=== PATIENT | male | born 1960 | race Caucasian/White ===

== ENCOUNTER → 2017-12-18 11:47 | Outpatient (CLI) | payer BC, SELFPAY ==
--- NOTE | 2017-12-18 11:49 | EKG12_ITS ---
Test Reason : PROLONGED QT INTERVA Blood Pressure : / mmHG Vent. Rate : 063 BPM Atrial Rate : 063 BPM P-R Int : 152 ms QRS Dur : 088 ms QT Int : 396 ms P-R-T Axes : 027 005 065 degrees QTc Int : 405 ms Normal sinus rhythm Low voltage QRS Abnormal ECG Confirmed by ESTEFANI DE LA ROSA, TAY ([id number]), editor managing director JERRI PEREZ ([id number] on 12/19/2017 10:51:11 AM Referred By: ROOSEVELT Confirmed By:TAY JARA MD
== END ==
PROVIDERS: Family Provider Student in an Organized Health Care Education/Training Program; PCP Student in an Organized Health Care Education/Training Program; Visit Provider Internal Medicine Hematology & Oncology
DX: C92.10 Chronic myeloid leukemia, BCR/ABL-positive, not having achieved remission (principal); R94.31 Abnormal electrocardiogram [ECG] [EKG]
CPT/HCPCS: 93005

== ENCOUNTER → 2018-04-25 17:10 | Outpatient (CLI) | payer BC, SELFPAY ==
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
--- NOTE | 2018-04-25 17:10 | DT_ITS ---
This patient was seen during an EMR downtime April 23, 2018 - April 30, 2018. This patient may have a combination of paper and electronic documentation or all paper documentation. All documentation is viewable within the e-chart portion of [employer] for each patient visit.
== END ==
PROVIDERS: Family Provider Student in an Organized Health Care Education/Training Program; PCP Student in an Organized Health Care Education/Training Program; Visit Provider Anesthesiology Pain Medicine
DX: M54.5 Low back pain (principal); M79.605 Pain in left leg; R29.898 Other symptoms and signs involving the musculoskeletal system
CPT/HCPCS: 72148

== ENCOUNTER 2018-07-04 09:57 | Emergency (ER) | payer BC, SELFPAY ==
[2018-07-04 09:59] VITALS: BP 132/84; PULSE 84; RESP 17; TEMP 37.3; O2SAT 94; BMI 28.0
[2018-07-04 10:49] LABS: Erythrocyte Sedimentation Rate 56 mm/hr (0-20)
[2018-07-04 10:50] LABS: Bacteria 0 SEEN /hpf (None Seen); Mucous, Urine 0 SEEN /hpf (<or=2+); Squamous Epithelial Cells - UA 0 SEEN /hpf (0-5)
[2018-07-04 10:52] LABS: Color, Urine Yellow (Yellow); Glucose, Dipstick Normal (Normal); Ketone-Dipstick Negative (Negative); Leukocyte Esterase-Dipstick 25 /ul (Negative); Nitrite-Dipstick Negative (Negative); Occult Blood-Urine 25 /ul (Negative); Protein-Dipstick 15 mg/dl (Negative); Urine Bilirubin Dipstick Negative (Negative); Urine Clarity Sl. Cloudy (Clear); Urine Urobilinogen 1 mg/dl (Normal)
[2018-07-04 10:53] LABS: Absolute Lymphocyte Count 1.47 X10^3/ul (0.83-4.51); Absolute Neutrophil Count 7.8 X10^3/uL (2.0-7.7); Basophil# 0.05 X10^3/uL; Basophil% 0.4 % (0-1); Differential Indicated SCAN CRITERIA MET; Eosinophil# 0.48 X10^3/uL; Hematocrit 40.2 % (40-54); Hemoglobin 13.9 g/dl (13.0-16.5); Lymphocyte # 1.47 X10^3/ul (4.0); Lymphocyte % 12.1 % (19-41); Mean Corp Hgb Conc 34.6 g/gl (32-36); Mean Corpuscular Hgb 31.1 pg (27.0-32.0); Mean Corpuscular Volume 89.9 fL (80-94); Monocyte% 18.9 % (0-10); Neutrophil # 7.78 X10^3/uL (2.7-7.7); POSITIVE COUNT NO; POSITIVE DIFFERENTIAL YES; POSITIVE MORPHOLOGY NO; Platelet Count 265 K/mm3 (150-450); RBC Distribution Width CV 12.8 % (11.6-14.6); RBC Distribution Width SD 41.9 fl (35.1-43.9); Red Blood Count 4.47 M/mm3 (4.6-6.2); White Blood Count 12.2 K/mm3 (4.4-11.0)
[2018-07-04 10:57] LABS: Red Blood Cells-Urine 0-5 SEEN /hpf (0-5); White Blood Cells 0-5 SEEN /hpf (0-5)
[2018-07-04 11:04] LABS: ALB/GLOB Ratio 0.6 RATIO (0.9-2.4); AST(SGOT) 14 U/L (15-37); Alanine Aminotransfer ALT/SGPT 20 U/L (16-61); Alkaline Phosphatase 67 U/L (45-117); Anion Gap 6 (5-15); BUN 14 mg/dL (7-18); BUN/Creat Ratio 14.2 RATIO (10-20); Calcium,Total 8.9 mg/dL (8.5-10.1); Chloride 101 mmol/L (98-107); Creatinine, Serum 0.99 mg/dL (0.70-1.30); EST Glomerular Filtration Rate 82 mL/min (>60); Est Glom Filt Rate - Afr Amer 100 mL/min (>60); Estimated Creatinine Clearance 80.34 ml/min; Globulin 4.9 g/dL (2.2-4.2); Glucose 105 mg/dL (74-106); Potassium 3.9 mmol/L (3.5-5.1); Protein, Total 7.9 g/dL (6.4-8.2); Sodium Level 137 mmol/L (136-145)
[2018-07-04] MEDS: 0.9% Normal Saline 1,000 ML 150 ML IV (11:31)
--- NOTE | 2018-07-04 11:45 | NURSING ---
PAGING DR ROSALES PEREZ, [place] [phone]
[2018-07-04] MEDS: HYDROcodone Bitartrate/Apap 5/325 Tablet PO (12:05)
[2018-07-04 12:06] VITALS: BP 136/78; PULSE 82; RESP 16; O2SAT 98
--- NOTE | 2018-07-04 12:10 | ED.VISSUMM ---
- ER Visit Summary Date of Service: 07/04/18 Chief Complaint: [Right-sided chest pain] History of Present Illness: The patient is a 57 M [presents to the emergency department complaint of right-sided chest discomfort that started last evening. Patient combines of pain with deep breath and certain movement. Patient states that hurts the lay flat. Patient denies any cough or fever other than low-grade temp at home to 99. Patient states that he had a discectomy [address] Uzair Marks at the [facility]. Patient has history of prior DVT and has a Fam filter. Patient not currently anticoagulated. Patient does have a history of CML as well. Patient has had prior splenectomy.] Physical Examination: [HEENT-PERRLA, EOMI. Cranial nerves II through XII grossly intact. TMs clear. Mucous membranes moist. No adenopathy. Cardiovascular-regular rate and rhythm without murmur or ectopy Lungs-clear to auscultation, chest wall stable without crepitus or subcu emphysema Abdomen-normoactive bowel sounds, soft, nontender, no rebound or rigidity, no peritoneal signs. Extremities-intact ?4, normal range of motion, normal pulses, atraumatic] Test Results: [EKG obtained on arrival showed a sinus rhythm with a ventricular rate of 74 bpm with no acute ST segment changes. CBC with differential showed a white count of 12.2, heme globin 13.9, hematocrit 40, platelets 265. Sed rate was elevated at 56. Chemistries unremarkable. Urinalysis was normal. Troponin was less than 0.015. CTA of the chest obtained showed multiple bilateral pulmonary emboli in the peripheral branches.] Emergency Department Course and Treatment: I discussed case with patient and his . I also spoke with the nurse practitioner covering for Dr. Uzair Marks and they are comfortable with anticoagulating the patient. I discussed case with Dr. Bianchi who was covering for Dr. Somers who agrees with treatment with Eliquis.] Treatment Plan: [Patient will be started on Eliquis] Disposition: [Discharged to home in stable condition] Impression: [Bilateral pulmonary emboli] This note was generated with Aipai dictation software. It may contain incorrect words, spelling, and punctuation that were not noted in review of the chart prior to signing ED Disposition - Plan for ED Patient: Chief Complaint: Chest Other Referrals: Yeison Somers, [Primary Care Provider] -
--- NOTE | 2018-07-04 12:13 | ED.DEP ---
ED Disposition - Plan for ED Patient: Chief Complaint: Chest Other Instructions: Pulmonary Embolism Prescriptions: Apixaban [Eliquis] 5 mg PO BID #70 tab Referrals: Yeison Somers DO [Primary Care Provider] - 3-5 Days
[2018-07-04] MEDS: APIXABAN 5 MG TABLET 10 MG PO (12:28)
[2018-07-04 12:30] VITALS: BP 133/74; PULSE 80; RESP 16; O2SAT 97
== END 2018-07-04 12:44 | disposition home or self-care (01) ==
LOC: ED 10:36
PROVIDERS: Emergency Provider Emergency Medicine; Family Provider Student in an Organized Health Care Education/Training Program; PCP Student in an Organized Health Care Education/Training Program
DX: I26.99 Other pulmonary embolism without acute cor pulmonale (principal); R50.9 Fever, unspecified; Z86.718 Personal history of other venous thrombosis and embolism; C92.10 Chronic myeloid leukemia, BCR/ABL-positive, not having achieved remission; Z95.828 Presence of other vascular implants and grafts; Z90.81 Acquired absence of spleen; Z79.82 Long term (current) use of aspirin; Z79.899 Other long term (current) drug therapy
CPT/HCPCS: 71275; 80053; 81001; 84484; 85025; 85652; 93005; 96360; 99285; Q9967

== ENCOUNTER 2018-08-30 17:30 | Outpatient (RCR) | payer BC, SELFPAY ==
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
== END 2018-08-30 19:00 | disposition home or self-care (01) ==
LOC: PT 17:30
PROVIDERS: Family Provider Student in an Organized Health Care Education/Training Program; PCP Student in an Organized Health Care Education/Training Program; Visit Provider Nurse Practitioner Acute Care
DX: M48.00 Spinal stenosis, site unspecified (principal)
CPT/HCPCS: 97110; 97162

== ENCOUNTER 2020-01-17 20:30 | Emergency (ER) | payer BC, SELFPAY ==
[2020-01-17 20:31] VITALS: BP 159/90; PULSE 77; RESP 15; TEMP 36.5; O2SAT 95; BMI 29.4
--- NOTE | 2020-01-17 20:52 | US_ITS ---
STUDY: VENOUS DOPPLER ULTRASOUND - RIGHT LOWER EXTREMITY REASON FOR EXAM: Male, 59 years old. RIGHT CALF PAIN 3 DAYS TECHNIQUE: Ultrasound evaluation of the deep vein system to include mahan-scale imaging and compression was performed. Mahan-scale imaging and Doppler sonographic evaluation, including duplex spectral analysis and qualitative color flow sonography, was performed. COMPARISON: None. FINDINGS: Common Femoral Vein: Normal compression, spontaneity and augmentation. Normal color Doppler. Deep Femoral Vein: Normal compression. Femoral Proximal: Normal compression. Femoral Middle: Normal compression, spontaneity and augmentation. Normal color Doppler. Femoral Distal: Normal compression. Popliteal Vein: Normal compression, spontaneity and augmentation. Normal color Doppler. Posterior Tibial Vein: Normal compression. Peroneal Vein: Normal compression. Within the popliteal fossa there is a 2.8 x 0.8 x 1.6 cm well-circumscribed anechoic focus. US/Venous Duplex Imag/Limited/Uni IMPRESSION: No demonstrated deep vein thrombosis. 2.8 x 0.8 x 1.6 cm popliteal cyst. Electronically Signed: Ghislaine Amin MD at 22:44 EST Tel , Service support ,
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
== END 2020-01-17 23:03 | disposition home or self-care (01) ==
LOC: ED 20:51
PROVIDERS: Emergency Provider Emergency Medicine; PCP Student in an Organized Health Care Education/Training Program
DX: M71.21 Synovial cyst of popliteal space [Baker], right knee (principal); Z86.718 Personal history of other venous thrombosis and embolism; Z86.711 Personal history of pulmonary embolism; Z79.01 Long term (current) use of anticoagulants
CPT/HCPCS: 93971; 99282

== ENCOUNTER 2021-02-02 14:18 | Outpatient (RCR) | payer OTHER, SELFPAY ==
[2021-02-02] MEDS: COVID-19 VACC, MRNA(PFIZER)/PF 30 MCG/0.3 ML SYRINGE IM (11:16)
[2021-02-23] MEDS: COVID-19 VACC, MRNA(PFIZER)/PF 30 MCG/0.3 ML SYRINGE IM (11:15)
== END 2021-04-27 23:59 ==
LOC: IMMUN 14:18
PROVIDERS: PCP Student in an Organized Health Care Education/Training Program; Visit Provider Family Medicine
DX: Z23 Encounter for immunization (principal)
CPT/HCPCS: 0001A; 0002A; 91300

== ENCOUNTER 2021-07-29 09:59 | Emergency (ER) | payer OTHER, SELFPAY ==
[2021-07-29 10:00] VITALS: BP 161/85; PULSE 64; RESP 18; TEMP 36.6; O2SAT 98; BMI 28.8
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
[2021-07-29 10:55] LABS: Absolute Lymphocyte Count 2.12 X10^3/uL (0.83-4.51); Absolute Neutrophil Count 4.1 X10^3/uL (2.0-7.7); Basophil% 1.3 % (0-1); Eosinophil# 0.28 X10^3/uL; Eosinophils% 3.6 % (0-5); Hematocrit 47.5 % (40-54); Hemoglobin 15.9 g/dL (13.0-16.5); Lymphocyte # 2.12 X10^3/ul (0.83-4.51); Lymphocyte % 27.2 % (19-41); Mean Corp Hgb Conc 33.5 g/dL (32-36); Mean Corpuscular Hgb 29.8 pg (27.0-32.0); Mean Platelet Vol. 10.6 fl (6.2-12.0); Monocyte# 1.12 X10^3/uL; Monocyte% 14.4 % (0-10); NRBC Flagged by Analyzer 0 % (0-5); Neutrophil # 4.14 X10^3/uL (2.7-7.7); Neutrophil % 53.2 % (47-70); Platelet Count 285 K/mm3 (150-450); RBC Distribution Width CV 13.9 % (11.6-14.6); RBC Distribution Width SD 44.7 fl (35.1-43.9); Red Blood Count 5.34 M/mm3 (4.6-6.2); White Blood Count 7.8 K/mm3 (4.4-11.0)
[2021-07-29 11:05] LABS: Erythrocyte Sedimentation Rate 25 mm/hr (0-20)
[2021-07-29 11:25] LABS: Anion Gap 6 (5-15); BUN 16 mg/dL (7-18); BUN/Creat Ratio 16.2 RATIO (10-20); CRP < 2.90 mg/L (0.0-3.0); Calcium,Total 9.3 mg/dL (8.5-10.1); Chloride 107 mmol/L (98-107); Creatinine, Serum 0.99 mg/dL (0.70-1.30); EST Glomerular Filtration Rate 81 mL/min (>60); Est Glom Filt Rate - Afr Amer 98 mL/min (>60); Estimated Creatinine Clearance 73.89 ml/min; Glucose 94 mg/dL (74-106); Potassium 4.2 mmol/L (3.5-5.1); Sodium Level 138 mmol/L (136-145)
--- NOTE | 2021-07-29 12:04 | CT_ITS ---
STUDY: CTA OF THE BRAIN REASON FOR EXAM: Male, 61 years old. Aneurysm RADIATION DOSAGE (If Supplied By Facility): CTDIvol = ( 28.04 ) mGy, DLP = ( 1250.06 ) mGycm TECHNIQUE: CT angiography was performed with a multi-detector CT scanner. Data acquisition was obtained from the skull base through the vertex following intravenous administration of IV 100mL [id number]-[id number]. MIP images were reconstructed from the axial data set. Post-processing of the angiographic images was performed, with multiplanar reformation and 3D reconstruction. Individualized dose optimization techniques were used for this CT. COMPARISON: None. FINDINGS: Normal bilateral petrous carotid arteries. There is calcified plaque formation of the right cavernous carotid artery, without a cross-sectional luminal stenosis. There is calcified plaque formation of the left cavernous carotid artery, without a cross-sectional luminal stenosis. Normal right A1 segments of the anterior cerebral artery. Normal left A1 segments of the anterior cerebral artery. Normal intact anterior communicating artery (ACOM). Normal bilateral A2 segments of the anterior cerebral arteries. Normal right M1 and M2 segments of the middle cerebral arteries, with a normal M1 bifurcation. Normal left M1 and M2 segments of the middle cerebral arteries, with a normal M1 bifurcation. Normal right posterior communicating artery (PCOM). Normal left posterior communicating artery (PCOM). Normal bilateral vertebral arteries. Normal basilar artery with a normal basilar bifurcation. The visualized bilateral superior cerebellar (SCA) arteries are normal. Normal bilateral P1, P2 and visualized P3 segments of the posterior cerebral arteries. There is no demonstrated aneurysm of the [place]. There is evidence of a cavum septum pellucidum. CT/CTA Head W/WO Contrast IMPRESSION: Normal [place] of [place] without a demonstrated aneurysm or hemodynamically significant stenosis. Electronically Signed: Steven Griffiths MD at 12:38 EDT , Service support ,
== END 2021-07-29 15:45 | disposition home or self-care (01) ==
PROVIDERS: Emergency Provider Emergency Medicine; PCP Student in an Organized Health Care Education/Training Program
DX: H49.01 Third [oculomotor] nerve palsy, right eye (principal); Z85.6 Personal history of leukemia; Z79.82 Long term (current) use of aspirin
CPT/HCPCS: 70496; 80048; 85025; 85652; 86140; 99283; Q9967; A4216

== ENCOUNTER → 2022-12-06 | Outpatient (CLI) | payer BC, SELFPAY ==
--- NOTE | 2022-12-06 15:26 | RAD_ITS ---
INDICATION: BACK PAIN EXAMINATION/TECHNIQUE: X-RAY - XR Spine Lumbar Min 4 Views COMPARISON: None. FINDINGS: VERTEBRAE: Preserved vertebral body height. No fracture. No spondylolisthesis. Preservation of the normal lumbar lordosis. No significant facet arthropathy. DISCS: There is narrowing of the L5-S1 disc space and mild multilevel endplate spurring INCLUDED ABDOMEN: Included bowel gas pattern is non-obstructive. IVC filter noted Postsurgical changes status post fusion of the sacroiliac joints. RAD/L/S Spine Min 4 Views IMPRESSION: Mild spondylosis. No acute fracture or other significant bony pathology. Electronically Signed: Lance Marley MD at 17:37 EST ,
--- NOTE | 2022-12-06 15:34 | RAD_ITS ---
STUDY: X-RAY - PELVIS AND RIGHT HIP REASON FOR EXAM: Male, 62 years old. Right hip pain. TECHNIQUE: 3 views of the pelvis and hip. COMPARISON: 08/10/2017 radiographs. FINDINGS: No acute fracture or aggressive osseous lesions. Extensive chronic posttraumatic and postsurgical changes again demonstrated, with fixation screws traversing both sacroiliac joints, a plate and screw fixating the upper aspect of the pubic symphysis, and 2 plates and screws fixating the right acetabulum. The hardware is intact. Adjacent healed fractures again demonstrated. Heterotopic ossifications adjacent to the right hip again demonstrated. Mild left and moderate right hip joint osteoarthritis similar to previous. Soft tissues unremarkable. RAD/HIP, UNI W/ Pelvis 2-3 Views IMPRESSION: No acute finding or significant change. Moderate right and mild left hip osteoarthritis. Extensive chronic posttraumatic and postsurgical changes. Electronically Signed: Baldemar Pang MD at 23:19 EST Reading Location ID and State: [facility] / [place] Tel , Service support ,
== END | disposition home or self-care (01) ==
LOC: RAD 15:25
PROVIDERS: PCP Student in an Organized Health Care Education/Training Program; Referring Provider Anesthesiology Pain Medicine; Visit Provider Anesthesiology Pain Medicine
DX: M47.816 Spondylosis without myelopathy or radiculopathy, lumbar region (principal); M51.37 Other intervertebral disc degeneration, lumbosacral region; M16.11 Unilateral primary osteoarthritis, right hip
CPT/HCPCS: 72110; 73502

== ENCOUNTER 2024-01-08 13:21 | Emergency (ER) | payer OTHER, BC, SELFPAY ==
[2024-01-08 13:22] VITALS: BP 127/90; PULSE 68; RESP 18; TEMP 36.9; O2SAT 96; BMI 29.1
--- NOTE | 2024-01-08 13:35 | ED.RN ---
[facility] NOTIFIED OF PATIENT NEEDING DRUG TESTING
--- NOTE | 2024-01-08 13:57 | CT_ITS ---
STUDY: CT BRAIN WITHOUT CONTRAST REASON FOR EXAM: Male, 63 years old. Head trauma on Brilinta RADIATION DOSAGE (If Supplied By Facility): CTDIvol = ( 47.06 ) mGy, DLP = ( 907.97 ) mGycm TECHNIQUE: Transaxial CT imaging of the brain was performed without administration of intravenous contrast material. Individualized dose optimization techniques were used for this CT. COMPARISON: Comparison is made with prior study dated March 26, 2017. FINDINGS: Small scalp hematoma overlying the right parietal bone. Normal calvarium. There is mild cerebral atrophy with widening of the extra-axial spaces and ventricular dilatation. Normal white matter tracts of the cerebral hemispheres. Normal basal ganglia and thalami. Normal brainstem. Normal cerebellum. There is a cavum septum pellucidum. There is no intracranial hemorrhage. There are no findings of an acute ischemic infarction. Normal visualized paranasal sinuses. CT/Brain/Head without Contrast IMPRESSION: Chronic involutional changes of the brain. Small scalp hematoma overlying the right frontal bone. Electronically Signed: Steven Griffiths MD at 14:41 EST ,
--- NOTE | 2024-01-08 13:59 | EDS_ITS ---
HPI History of Present Illness Chief Complaint: Laceration Detail of Chief Complaint: Blunt head trauma with laceration vertex scalp Informant: patient Onset/Context/Timing Onset: Hours Mechanism/Context: Blunt Injury Location of pain/injuries: - (Scalp) Quality of Pain: - (None) Location: Vertex scalp Current Severity: Gone Maximum Severity: Mild Worsened by: Nothing Relieved by: Not applicable Associated Symptoms Associated Symptoms: Negative for Parasthesias, Weakness, Loss of function, Inability to ambulate, Loss of consciousness or Amnesia Length of loss of consciousness: None Narrative Narrative: Patient is a 63-year-old male who presents from work after blunt head trauma. Patient hit his head on metal. He reports no loss of conscious. He states he was not dazed. He denies nausea or vomiting. He denies visual disturbance. Initial speech or swallowing. He denies paresthesia, anesthesia motors. Denies neck pain. Patient is on Brilinta. States he does not bleed easily. He is also on aspirin. Tetanus Immunization: 5-10 years Prior similar symptoms: No Recent Illness/Hospitalization: No PFSH PFS Medical History Ambrose's palsy Cervical vertebral fracture Fracture, hip H/O: CML (chronic myeloid leukemia) Pelvis fracture Ribs, multiple fractures Home Medications Proventil Hfa 2 puff inhalation 4X/DAY PRN PRN Shortness Of Breath 06/23/14 [History Last Taken 03/25/17] aspirin 81 mg chewable tablet 81 mg PO DAILY@0800 06/23/14 [History Last Taken 03/25/17] multivitamin with folic acid 400 mcg tablet (Thera) 1 tab PO DAILY 06/23/14 [History Last Taken 03/25/17] tamsulosin 0.4 mg capsule 0.4 mg PO DAILY 06/23/14 [History Last Taken 03/25/17] nilotinib 150 mg capsule (Tasigna) 300 mg PO BID 03/26/17 [History Last Taken 03/26/17] azelastine 0.05 % eye drops 1 drp DAILY PRN Allergies 08/18/17 [History Last Taken Unknown] cromolyn 4 % eye drops 1 drp BID 08/18/17 [History Last Taken Unknown] montelukast 10 mg tablet 10 mg PO DAILY 08/18/17 [History Last Taken Unknown] cetirizine 5 mg tablet 5 mg PO DAILY 07/29/21 [History Last Taken Unknown] fluticasone 100 mcg-salmeterol 50 mcg/dose blistr powdr for inhalation (Advair Diskus) 1 inh inhalation BID 07/29/21 [History Last Taken Unknown] Allergy/AdvReac Type Severity Reaction Status Date / Time oxycodone HCl [From Percocet] AdvReac HALLUCINATI Verified 01/08/24 13:22 ONS Surgical History H/O splenectomy Social History (Updated 01/08/24 @ 14:[address] Kee Junior MD) Smoking Status: Never smoker substance use type: does not use ROS ROS ED Eyes Eyes: Denies blurry vision or change in vision ENT ENT ED: Reports other Details: Denies epistaxis or dental trauma. ; Denies ear pain or rhinorrhea Cardiovascular Cardiovascular: Reports chest pain Respiratory/Chest Respiratory/Chest: Reports dyspnea Gastrointestinal Gastrointestinal: Reports nausea and vomiting Integumentary Reports other Details: Scalp laceration, flap-like Neurologic Neurologic: Denies headache(s), paresthesias or weakness Hematologic/Lymphatic Hematologic/Lymphatic: Reports easy bleeding and easy bruising EXAM Physical Exam Const Vital Signs: 01/08/24 13:22 Temperature 98.5 F Temperature Source Temporal Pulse Rate 68 Respiratory Rate 18 Blood Pressure 127/90 H Blood Pressure Mean 102 Pulse Ox 96 Oxygen Delivery Method Room Air Positive well nourished and well developed General Appearance ED: well developed and NAD HEENT HEENT Narrative: Vertex scalp. There is no palpable oppression. There is no clinical signs of basilar skull fracture. There is no septal deviation hematoma. There is no evidence of dental trauma. trauma and tenderness Eyes PERRL and EOMs intact bilaterally Neck full ROM Resp normal respiratory effort Cardio regular rhythm and S1 normal heart sound Back/Spine normal to inspection Extremity normal to inspection and full ROM Neuro oriented x3, CN's II-XII intact bilaterally and moves all extremities Sensorium / Orientation: alert Psych mental status grossly normal and thought process normal Skin Skin Narrative: Flap like laceration vertex of the head. PROC Procedures Other Procedures Procedure(s): Patient was prepped draped sterile manner. There is no signs with local infiltration. Wound was irrigated with 200 cc normal saline. Using 5-0 Ethilon 3 simple interrupted sutures placed without difficulty. Patient had good hemostasis and cosmesis. MDM MDM MDM Narrative Medical decision making narrative: Since patient is on Brilinta will obtain CT of the head to rule out subdural hematoma, epidural hematoma intraparenchymal contusion. Laceration will require repair. This will be documented under the procedure section of the chart. Tetanus is not up-to-date. Radiography Diagnostic Testing: Clinical Impression(s) from Imaging Studies Brain CT 01/08/24 13:57 IMPRESSION: Chronic involutional changes of the brain. Small scalp hematoma overlying the right frontal bone. Electronically Signed: Steven Griffiths MD at 14:41 EST , CT was reviewed. There is a hematoma noted over the frontal bone. There is no abnormality over the vertex of the head where he has a laceration. There is no foreign body. 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, Laceration of scalp Instructions: ED Head Injury (Adult), ED Laceration, All Closures Prescriptions: No Action tamsulosin 0.4 MG capsule 0.4 mg PO DAILY aspirin 81 MG tablet,chewable 81 mg PO DAILY@0800 multivitamin with folic acid [Thera] 1 TABLET tablet 1 tab PO DAILY Proventil Hfa 2 puff inhalation 4X/DAY PRN PRN (Reason: Shortness Of Breath) Tasigna 150 MG capsule 300 mg PO BID azelastine 6 ML drops 1 drp Each Eye DAILY PRN (Reason: Allergies) cromolyn 10 ML drops 1 drp Each Eye BID montelukast 10 MG tablet 10 mg PO DAILY cetirizine 5 mg Tablet 5 mg PO DAILY fluticasone propion-salmeterol [Advair Diskus] 100-50 mcg/dose Blister With Device 1 inh INHALATION BID Primary Care Provider: Yeison Somers Referrals: [facility]Group of Phys[facility]] - 7 Days for suture removal Yeison Somers, DO [Primary Care Provider] - Activity Restrictions/Additional Instructions: Keep wound clean and dry for the next 24 to 48 hours. You may shower or bathe. 2. Apply bacitracin ointment 3 times a day Disposition Disposition: Home, Self Care
[2024-01-08 17:02] VITALS: BP 146/91; PULSE 60; RESP 16; TEMP 36.7; O2SAT 95
[2024-01-08 17:08] VITALS: BP 146/91; PULSE 87; RESP 16; TEMP 36.6; O2SAT 99
== END 2024-01-08 17:09 | disposition home or self-care (01) ==
PROVIDERS: Emergency Provider Emergency Medicine; PCP Student in an Organized Health Care Education/Training Program; Visit Provider Emergency Medicine
DX: S01.01XA Laceration without foreign body of scalp, initial encounter (principal); C92.10 Chronic myeloid leukemia, BCR/ABL-positive, not having achieved remission; Z79.82 Long term (current) use of aspirin; Z79.899 Other long term (current) drug therapy; Z90.81 Acquired absence of spleen; S09.8XXA Other specified injuries of head, initial encounter; W22.09XA Striking against other stationary object, initial encounter; Y99.0 Civilian activity done for income or pay; Y92.89 Other specified places as the place of occurrence of the external cause
CPT/HCPCS: 12001; 70450; 99283